=== PATIENT | female | born 1990 | race Two or more races ===

== ENCOUNTER 2022-06-26 16:21 | Emergency (ER) | payer OTHER ==
[~2022-06-26] VITALS: Ht 172.7 cm; Wt 70.3 kg
[2022-06-26] MEDS ORDERED: MUCINEX FAST-M180 M2 PO (19:16)
== END 2022-06-26 19:50 | disposition home or self-care (01) ==
LOC: ER 16:21
DX: R51.9 Headache, unspecified (principal); U09.9 Post COVID-19 condition, unspecified; R53.82 Chronic fatigue, unspecified